=== PATIENT | female | born 1960 | race Caucasian/White ===

== ENCOUNTER → 2024-04-03 07:06 | Outpatient (REF) | payer BC, SELFPAY ==
[2024-04-03 08:38] LABS: ALT (SGPT) 38 U/L (0-35); AST (SGOT) 28 U/L (14-36); Alkaline Phosphatase 86 U/L (38-126); Blood Urea Nitrogen 15 mg/dl (7-17); Calcium 9.5 mg/dl (8.4-10.2); Carbon Dioxide 28 mmol/L (22-30); Chloride 102 mmol/L (98-107); Glucose 149 mg/dl (70-99); HDL Cholesterol 57 mg/dl; LDL Cholesterol, Calculated 130 mg/dl; Potassium 4.8 mmol/L (3.5-5.1); Sodium 140 mmol/L (135-145); Total Bilirubin 0.6 mg/dl (0.2-1.3); Total Cholesterol 213 mg/dl (50-199); Total Protein 6.5 g/dl (6.3-8.2); Triglyceride 133 mg/dl (10-149); Very Low Density Lipoprotein 26 mg/dl (0-30); eGFR > 60.00
[2024-04-03 09:12] LABS: Microalbumin, Random Urine < 0.6 mg/dl (0.6-1.7)
[2024-04-03 09:36] LABS: Glycohemoglobin (HgbA1c) 7.8 % (4.0-5.6)
== END ==
LOC: REG 07:06
PROVIDERS: ATTENDING PHYSICIAN Family Medicine
DX: I10 Essential (primary) hypertension (principal); E11.69 Type 2 diabetes mellitus with other specified complication; R63.8 Other symptoms and signs concerning food and fluid intake; Z79.899 Other long term (current) drug therapy
CPT/HCPCS: 36415; 80053; 80061; 82043; 82570; 83036

== ENCOUNTER → 2024-05-17 08:11 | Outpatient (REF) | payer BC, SELFPAY | LOC: RAD 08:11 | PROVIDERS: ATTENDING PHYSICIAN Family Medicine | DX: L02.92 Furuncle, unspecified (principal) | CPT/HCPCS: 76882 ==

== ENCOUNTER → 2024-06-15 07:17 | Outpatient (REF) | payer BC, SELFPAY ==
[2024-06-15 10:23] LABS: ALT (SGPT) 28 U/L (0-35); AST (SGOT) 25 U/L (14-36); Alkaline Phosphatase 75 U/L (38-126); Blood Urea Nitrogen 13 mg/dl (7-17); Calcium 9.4 mg/dl (8.4-10.2); Carbon Dioxide 29 mmol/L (22-30); Chloride 105 mmol/L (98-107); Glucose 137 mg/dl (70-99); HDL Cholesterol 46 mg/dl; LDL Cholesterol, Calculated 95 mg/dl; Potassium 4.4 mmol/L (3.5-5.1); Sodium 141 mmol/L (135-145); Total Bilirubin 0.4 mg/dl (0.2-1.3); Total Cholesterol 153 mg/dl (50-199); Total Protein 6.3 g/dl (6.3-8.2); Triglyceride 62 mg/dl (10-149); Very Low Density Lipoprotein 12 mg/dl (0-30); eGFR > 60.00
[2024-06-15 15:29] LABS: Glycohemoglobin (HgbA1c) 6.6 % (4.0-5.6)
== END ==
LOC: REG 07:17
PROVIDERS: ATTENDING PHYSICIAN Family Medicine
DX: I10 Essential (primary) hypertension (principal); E11.69 Type 2 diabetes mellitus with other specified complication; R63.8 Other symptoms and signs concerning food and fluid intake
CPT/HCPCS: 36415; 80053; 80061; 83036

== ENCOUNTER 2024-07-03 06:24 | Day surgery (SDC) | payer BC, SELFPAY ==
[2024-07-02 13:47] VITALS: BMI 30.9
[2024-07-03] VITALS (12 sets, daily range): BP systolic 93–152; BP diastolic 50–76; BMI 30.9
[2024-07-03] MEDS: TYLENOL 1000 MG PO (10:03)
[2024-07-03] MEDS: CELEBREX 200 MG PO (10:03)
[2024-07-03] MEDS: NORMOSOL-R 1000 IV (10:04)
--- NOTE | 2024-07-03 11:24 | W.IMMPOSTOP ---
Addendum entered and electronically signed by Deni Jacobson MD 07/03/24 11:50:
updated Adina, patient's spouse, regarding the surgery and condition
Original Note:
Surgical Immed Post Op Note
-
Primary Surgeon: Deni Jacobson MD
Assisting Surgeon: Tyler Ruiz, resident
Pre-op Diagnosis: Perianal fistula
Post-op Diagnosis: Left anterior transsphincteric perianal fistula
Procedure Performed: Exam under anesthesia, incision and drainage of left ischiorectal abscess, debridement of transsphincteric perianal fistula, placement of seton, bilateral pudendal nerve block
Anesthesia Type: Sedation with local
Specimen / Cultures: Left anterior fistula tract
Estimated Blood Loss: 10 mL
Complications: None
Operative Findings: Per op note
--- NOTE | 2024-07-03 11:26 | OR.RPT ---
Operative Report
Operative Report
DATE OF OPERATION: 07/03/2024
SURGEON: Deni Jacobson MD
PREOPERATIVE DIAGNOSIS: Perianal fistula
POSTOPERATIVE DIAGNOSIS: Left anterior transsphincteric anal fistula associated with left-sided ischiorectal abscess
OPERATION: Exam under anesthesia, incision and drainage of left ischiorectal abscess, debridement of fistula tract, placement of seton, bilateral pudendal nerve block
ASSISTANTS:
1. Tyler Ruiz, resident
ANESTHESIA: MAC w/ local
ESTIMATED BLOOD LOSS: 10 mL
FINDINGS:
1. External opening located in the left anterior position about 6 cm from the anal verge; this was probed and a transsphincteric fistula was identified oriented radially with the internal opening slightly proximal to the anal verge; further probing
identified an associated ischiorectal abscess cavity with 2 mL of purulent drainage; the tract and abscess were curetted; the external opening and tract were sent for pathology
2. The anal canal measured 3.5 cm in length posteriorly and 2.5 cm in length anteriorly; two small to moderate left lateral internal hemorrhoids not irritated or bleeding, small right anterior and right posterior internal hemorrhoids not irritated
or bleeding; no other intra-anal pathology
3. About 5 mm of internal sphincter and 2 cm of external sphincter appeared involved with the fistula; therefore a seton was placed
SPECIMENS:
1. Fistula tract
DRAINS: N/A
COMPLICATIONS: None
INDICATIONS: The patient is a 64-year-old female who presented to me in the office for concern of chronic draining perianal lesion. On exam, there was a palpable cord, concerning for a perianal fistula with an external opening several centimeters
away from the anal verge. Therefore, the patient was recommended to have surgery. The operation was discussed with the patient in detail, including the risks, benefits and alternatives. Risks described included, but not limited to, bleeding,
infection, damage to nearby structures such as the anal sphincter, fecal incontinence, recurrence, urinary retention, inability to identify the internal opening and anesthetic risks. The patient understood and agreed to proceed. The consent was
signed and placed in the chart.
PROCEDURE IN DETAIL: The patient was taken to the operating room. The patient was then placed on the operating table in prone position. Sequential compression devices were placed bilaterally. Sedation was commenced without complication. Two seat
belts were secured around the legs and upper back. The buttocks were taped apart. The perineum was shaved, prepped and draped in the usual fashion. A time-out was then performed verifying the correct patient, procedure, operative site,
positioning, and special equipment.
Local anesthesia used was a mixture of 60 mL of 0.25% Marcaine with epinephrine and 0.6 mg of dexamethasone. 40 mL was injected perianally at the beginning of the case. The anorectal exam was performed assessing all four quadrants of the anal canal
using Hill-Batista retractors in progressively increasing size. There was an external opening in the left anterior position about 6 cm from the anal verge. About 2 cc of pus was noted to emanate from the external opening. 1 cc of pus was noted
to emanate from the anal canal in the right anterior position, concerning for a fistula. There were 2 [id number] internal hemorrhoids in the left lateral position that were not irritated or bleeding. There were small internal hemorrhoids in
the right anterior and right posterior position, not irritated or bleeding. These hemorrhoids were left alone. There was no other notable pathology within the anal canal. There was a small anterior midline skin tag.
Using the Walters fistula probes, the external opening was probed and a fistula tract was identified. It was directed radially to the anal canal, about 5 mm proximal to the anal verge. Upon palpating the tract externally, it appeared evident that
there was about 5 mm of internal sphincter involved, as well as about 2.0 cm of external sphincter involved. I measured the length of the anal canal both anteriorly and posteriorly, which measured 2.5 cm and 3.5 cm respectively. I further probed
the external opening and identified an abscess cavity in the ischiorectal space, extending posteriorly by about 6 cm. Therefore, the cavity itself was situated more in the left lateral region. I debrided the external opening and passed this off as
specimen. I shortened the fistula tract using electrocautery, starting from the external opening and incised radially toward the anal canal, stopping prior to the external sphincter muscle. I passed a 3-0 silk through the fistula tract and secured
this with a hemostat. I used a curette to debride the fistula tract and abscess cavity. The granulation tissue was included in the specimen. I copiously irrigated the cavity and tract.
Due to the foreshortened anal canal anteriorly and the transsphincteric nature of the fistula tract, I opted to perform a seton placement. I passed a blue vessel loop through the fistula tract after tying this to the silk tie. I secured the vessel
loop to itself using 3 knots of 2-0 silk. I was able to easily pass 1 finger under the seton, ensuring that it was not too tight.
Hemostasis was achieved. The remaining 20 mL of local were injected. 5 mL was injected bilaterally for a pudendal nerve block. 10 mL was injected around the surgical site and perianally. Hemostasis was reassessed once more using the small
Hill-Batista and was confirmed. Surgicel was placed in the operative site prophylactically.
At this point, the procedure was complete. All needle, sponge and instrument counts were correct. The patient tolerated the procedure well and was transferred to the recovery room in stable condition with gauze and silk tape in place over the anus.
Of note, Tyler Ruiz, resident, was necessary during this procedure for traction, countertraction, and exploratory purposes. I was present for the entire duration of the case.
DICTATED BY: Deni Jacobson MD
[2024-07-03 11:38] LABS: Glucose - Point of Care 118 mg/dl (70-99)
== END 2024-07-03 12:55 | disposition home or self-care (01) ==
LOC: SDS 06:24
PROVIDERS: ATTENDING PHYSICIAN Surgery; FAMILY PHYSICIAN Family Medicine
DX: K61.39 Other ischiorectal abscess (principal); K64.8 Other hemorrhoids
CPT/HCPCS: 46280; 88304; 36415; 82962; 93005

== ENCOUNTER 2024-10-02 06:14 | Day surgery (SDC) | payer BC, SELFPAY ==
[2024-09-27 09:05] LABS: Hemoglobin 13.7 g/dL (12.0-16.0); Mean Corp Hgb Conc. 32.6 g/dL (33.0-37.0); Mean Corpuscular Hgb 32.6 pg (27.0-31.0); Platelet Count 222 10^3/uL (130-400); Red Cell Dist. Width 12.3 % (11.5-14.5); White Blood Cell Count 7.1 10^3/uL (4.8-10.8)
[2024-09-27 09:08] LABS: PT 13.5 Sec (11.4-14.6)
[2024-09-27 09:09] LABS: APTT 33.1 Sec (23.4-35.0)
[2024-09-27 09:28] LABS: ALT (SGPT) 24 U/L (0-35); AST (SGOT) 21 U/L (14-36); Albumin 4.1 g/dl (3.5-5.0); Alkaline Phosphatase 67 U/L (38-126); Blood Urea Nitrogen 20 mg/dl (7-17); Calcium 9.2 mg/dl (8.4-10.2); Carbon Dioxide 28 mmol/L (22-30); Chloride 101 mmol/L (98-107); Glucose 114 mg/dl (70-99); Sodium 140 mmol/L (135-145); Total Bilirubin 0.4 mg/dl (0.2-1.3); Total Protein 6.6 g/dl (6.3-8.2); eGFR 55.76
[2024-09-27 11:02] VITALS: BMI 27.5
[2024-10-02] VITALS (7 sets, daily range): BP systolic 92–166; BP diastolic 59–80; BMI 27.5
[2024-10-02 09:16] LABS: Glucose - Point of Care 136 mg/dl (70-99)
[2024-10-02] MEDS: CELEBREX 200 MG PO (09:29)
[2024-10-02] MEDS: TYLENOL 1000 MG PO (09:30)
[2024-10-02] MEDS: LYRICA 150 MG PO (09:30)
--- NOTE | 2024-10-02 11:34 | W.IMMPOSTOP ---
Surgical Immed Post Op Note
-
Primary Surgeon: Deni Jacobson MD
Assisting Surgeon: None
Pre-op Diagnosis: Transsphincteric perianal fistula
Post-op Diagnosis: Left ischiorectal abscess, transsphincteric perianal fistula
Procedure Performed: Exam under anesthesia, incision and drainage of left ischiorectal abscess, debridement of abscess cavity, replacement of seton drain, bilateral pudendal nerve block
Anesthesia Type: Sedation with local
Specimen / Cultures: None
Estimated Blood Loss: 5 mL
Complications: None
Operative Findings: Pus was noted to be draining from the external opening during preparation and injection of local; probed through the fistula tract and identified a persistent left ischiorectal abscess cavity, total of 3 to 4 mL of pus drained;
due to persistent infection associated with inflammation, aborted to the planned lift procedure due to increased likelihood of failure and replaced the seton drain; opened external opening to promote additional drainage
--- NOTE | 2024-10-02 11:45 | OR.RPT ---
Operative Report
Operative Report
DATE OF OPERATION: 10/02/2024
SURGEON: Deni Jacobson MD
PREOPERATIVE DIAGNOSIS: Transsphincteric perianal fistula
POSTOPERATIVE DIAGNOSIS: Left ischiorectal abscess, transsphincteric perianal fistula
OPERATION: Exam under anesthesia, incision and drainage of left ischiorectal abscess with debridement, placement of seton, pudendal nerve block
ASSISTANTS:
1. None
ANESTHESIA: Sedation with local
ESTIMATED BLOOD LOSS: 5 mL
FINDINGS:
1. Purulent drainage was noted emanating from the external opening during prepping and injection of local; identified a persistent ischiorectal abscess cavity and drained a total of 3 to 4 mL of pus; due to the persistent abscess and infection, I
aborted the planned LIFT procedure
2. Performed incision and drainage of the ischiorectal abscess; debrided and curetted the abscess cavity; replaced the seton drain in the transsphincteric fistula
SPECIMENS:
1. None
DRAINS: N/A
COMPLICATIONS: None
INDICATIONS: The patient is a 64-year-old female who initially presented to me in the office complaining of a draining cyst near her anus with a small amount of spotting of blood. On 07/03/2024, she underwent an exam under anesthesia, incision and
drainage of left ischiorectal abscess, identification of a left anterior transsphincteric fistula with placement of seton. She recovered well from this surgery with minimal symptoms. She presents today for the planned second stage surgery. The
operation was discussed with the patient in detail, including the risks, benefits and alternatives. Risks described included, but not limited to bleeding, infection, urinary retention, damage to nearby structures such as the anal sphincter, fecal
incontinence, recurrence, need for a sphincter-sparing procedure, such as a LIFT procedure vs advancement flap, complications if flap is used (ie- flap failure, chronic wound) and anesthetic risks. The patient understood and agreed to proceed. The
consent was signed and placed in the chart.
PROCEDURE IN DETAIL: The patient was taken to the operating room. The patient was then placed on the operating table in prone position. Sequential compression devices were placed bilaterally. Sedation was commenced without complication. Two seat
belts were secured around the legs and upper back. The buttocks were taped apart. The perineum was shaved, prepped and draped in the usual fashion. A time-out was then performed verifying the correct patient, procedure, operative site, positioning,
and special equipment.
Local anesthesia used was a mixture of 60 mL of 0.25% Marcaine with epinephrine and 0.6 mg of dexamethasone. 40 mL was injected perianally at the beginning of the case. The anorectal exam was performed assessing all four quadrants of the anal canal
using Hill-Batista retractors in progressively increasing size. There was purulent drainage emanating from the external opening. There was no proctitis. Using Walters fistula probes, the tract was probed and a persistent left-sided ischiorectal
abscess cavity was identified with an additional 2 to 3 mL of pus. The external opening was quite tight around the seton, which may have lead to inadequate drainage of the abscess. Due to the persistent abscess cavity with evidence of infection, I
felt it unsafe to proceed with a sphincter�sparing procedure as the risk of failure would be much higher. Therefore, I performed an incision and drainage by opening up the external opening using electrocautery. I was able to pass the tip of my
index finger into the abscess cavity to break up any loculations. I curetted the abscess cavity. I probed the cavity once more to ensure no other fistula tracts to else where in the perineum, which was confirmed. I copiously irrigated the wound.
The current seton was a little too loose at this point and was missing a stitch. Therefore, I exchanged the current seton for a new seton. I secured the seton in a circular manner using three 2-0 silk ties. I was able to pass the tip of my index
finger underneath the seton, confirming that the seton was not too tight. The wound was checked and hemostasis was assured.
The remaining 20 mL of local were injected. 5 mL was injected bilaterally for a pudendal nerve block. 10 mL was injected around the surgical site and perianally. Hemostasis was reassessed once more using the small Hill-Batista and was confirmed.
At this point, the procedure was complete. All needle, sponge and instrument counts were correct. The patient tolerated the procedure well and was transferred to the recovery room in stable condition with gauze and silk tape in place over the anus.
DICTATED BY: Deni Jacobson MD
== END 2024-10-02 12:35 | disposition home or self-care (01) ==
LOC: SDS 06:14
PROVIDERS: ATTENDING PHYSICIAN Surgery; FAMILY PHYSICIAN Family Medicine
DX: K61.39 Other ischiorectal abscess (principal); K60.30 Anal fistula, unspecified
CPT/HCPCS: 46020; 36415; 80053; 82962; 85027; 85610; 85730; 86850; 86900; 86901; 93005

== ENCOUNTER → 2024-12-04 07:21 | Outpatient (REF) | payer BC, SELFPAY ==
[2024-12-04 08:07] LABS: % Eosinophils 4.6 % (0-6); % Immature Granulocytes 0.3 % (0-0.5); % Monocytes 8.8 % (1.7-9.3); % Neutrophils 59.3 % (42.2-75.2); Absolute Basophils 0.1 10^3/uL (0-0.2); Absolute Eosinophils 0.4 10^3/uL (0-0.7); Absolute Monocytes 0.7 10^3/uL (0.1-0.6); Absolute Neutrophils 4.6 10^3/uL (1.4-6.5); Hematocrit 45.3 % (37.0-47.0); Mean Corp Hgb Conc. 33.1 g/dL (33.0-37.0); Mean Corpuscular Volume 96.6 fL (81.0-99.0); Mean Platelet Volume 8.6 fL (7.4-10.4); Nucleated Red Blood Cells % 0 %; Platelet Count 256 10^3/uL (130-400); Red Blood Cell Count 4.69 10^6/uL (4.20-5.40); Red Cell Dist. Width 12.5 % (11.5-14.5); White Blood Cell Count 7.8 10^3/uL (4.8-10.8)
[2024-12-04 08:59] LABS: ALT (SGPT) 29 U/L (0-35); AST (SGOT) 23 U/L (14-36); Albumin 4.3 g/dl (3.5-5.0); Alkaline Phosphatase 72 U/L (38-126); Blood Urea Nitrogen 19 mg/dl (7-17); Calcium 9.4 mg/dl (8.4-10.2); Carbon Dioxide 29 mmol/L (22-30); Chloride 102 mmol/L (98-107); Glucose 136 mg/dl (70-99); HDL Cholesterol 58 mg/dl; LDL Cholesterol, Calculated 109 mg/dl; Potassium 4.8 mmol/L (3.5-5.1); Sodium 139 mmol/L (135-145); Total Bilirubin 0.3 mg/dl (0.2-1.3); Total Cholesterol 182 mg/dl (50-199); Total Protein 6.7 g/dl (6.3-8.2); Triglyceride 78 mg/dl (10-149); Very Low Density Lipoprotein 15 mg/dl (0-30); eGFR > 60.00
[2024-12-04 09:51] LABS: Glycohemoglobin (HgbA1c) 6.5 % (4.0-5.6)
[2024-12-04 11:07] LABS: Microalbumin, Random Urine 0.6 mg/dl (0.6-1.7)
== END ==
LOC: REG 07:21
PROVIDERS: ATTENDING PHYSICIAN Family Medicine
DX: E11.69 Type 2 diabetes mellitus with other specified complication (principal); I10 Essential (primary) hypertension; E78.00 Pure hypercholesterolemia, unspecified
CPT/HCPCS: 36415; 80053; 80061; 82043; 82570; 83036; 85025

== ENCOUNTER → 2025-04-30 07:11 | Outpatient (REF) | payer BC, SELFPAY ==
[2025-04-30 07:45] LABS: % Basophils 1.1 % (0-2); % Eosinophils 4.3 % (0-6); % Immature Granulocytes 0.3 % (0-0.5); % Lymphocytes 26.4 % (20.5-51.1); % Monocytes 9.1 % (1.7-9.3); % Neutrophils 58.8 % (42.2-75.2); Absolute Basophils 0.1 10^3/uL (0-0.2); Absolute Eosinophils 0.3 10^3/uL (0-0.7); Absolute Lymphocytes 1.9 10^3/uL (1.2-3.4); Absolute Monocytes 0.6 10^3/uL (0.1-0.6); Absolute Neutrophils 4.1 10^3/uL (1.4-6.5); Hematocrit 44.2 % (37.0-47.0); Hemoglobin 14.6 g/dL (12.0-16.0); Mean Corpuscular Hgb 31.9 pg (27.0-31.0); Mean Corpuscular Volume 96.7 fL (81.0-99.0); Mean Platelet Volume 8.7 fL (7.4-10.4); Nucleated Red Blood Cells % 0 %; Platelet Count 222 10^3/uL (130-400); Red Blood Cell Count 4.57 10^6/uL (4.20-5.40); Red Cell Dist. Width 12.6 % (11.5-14.5)
[2025-04-30 08:16] LABS: ALT (SGPT) 31 U/L (0-35); AST (SGOT) 22 U/L (14-36); Albumin 4.1 g/dl (3.5-5.0); Alkaline Phosphatase 68 U/L (38-126); Blood Urea Nitrogen 17 mg/dl (7-17); Calcium 9.2 mg/dl (8.4-10.2); Carbon Dioxide 29 mmol/L (22-30); Chloride 104 mmol/L (98-107); Glucose 135 mg/dl (70-99); HDL Cholesterol 45 mg/dl; LDL Cholesterol, Calculated 111 mg/dl; Potassium 4.4 mmol/L (3.5-5.1); Sodium 139 mmol/L (135-145); Total Bilirubin 0.7 mg/dl (0.2-1.3); Total Cholesterol 169 mg/dl (50-199); Total Protein 6.4 g/dl (6.3-8.2); Triglyceride 69 mg/dl (10-149); Very Low Density Lipoprotein 13 mg/dl (0-30); eGFR > 60.00
[2025-04-30 11:13] LABS: Glycohemoglobin (HgbA1c) 6.3 % (4.0-5.6)
== END ==
LOC: REG 07:11
PROVIDERS: ATTENDING PHYSICIAN Family Medicine
DX: I10 Essential (primary) hypertension (principal); Z12.31 Encounter for screening mammogram for malignant neoplasm of breast; E11.69 Type 2 diabetes mellitus with other specified complication; E78.00 Pure hypercholesterolemia, unspecified; K60.40 Rectal fistula, unspecified
CPT/HCPCS: 36415; 80053; 80061; 83036; 85025